=== PATIENT | male | born 1995 | race Caucasian/White ===

== ENCOUNTER 2021-10-31 13:49 | Emergency (ER) | payer OTHER, BC ==
[2021-10-31] MEDS ORDERED: Lidocaine 5% 700 MG Patch TOP ONE (14:42)
[2021-10-31] MEDS ORDERED: Ibuprofen 400 MG Tab PO ONE (14:43)
[2021-10-31] MEDS ORDERED: Acetaminophen 325 MG Tab PO ONE (14:43)
[2021-10-31] MEDS ORDERED: Clindamycin HCl 150 MG Cap PO ONE (14:43)
== END 2021-10-31 15:55 | disposition home or self-care (01) ==
LOC: MW.ED 13:49
DX: S91.112A Laceration without foreign body of left great toe without damage to nail, initial encounter (principal); V53.5XXA Driver of pick-up truck or van injured in collision with car, pick-up truck or van in traffic accident, initial encounter; Y92.410 Unspecified street and highway as the place of occurrence of the external cause
CPT/HCPCS: 99282; A9270; 99283